=== PATIENT | female | born 1970 | race Two or more races ===

== ENCOUNTER 2016-07-29 12:17 | Emergency (ER) | payer MEDICAID ==
[~2016-07-29] VITALS: Ht 154.9 cm; Wt 68.0 kg
[2016-07-29] MEDS ORDERED: KETOROLAC TROMETH 60MG/2ML VIAL IM ONE (14:45)
[2016-07-29 14:47] VITALS: BP 139/69
== END 2016-07-29 15:10 | disposition home or self-care (01) ==
LOC: ER 12:17
DX: M23.91 Unspecified internal derangement of right knee (principal)
CPT/HCPCS: 73562; 96372; 99284; J1885

== ENCOUNTER 2017-05-13 11:48 | Emergency (ER) | payer MEDICAID ==
[~2017-05-13] VITALS: Ht 154.9 cm; Wt 77.1 kg
[2017-05-13 14:45] VITALS: BP 168/88
[2017-05-13] MEDS ORDERED: KETOROLAC TROMETH 60MG/2ML VIAL IM ONE (15:00)
== END 2017-05-13 15:12 | disposition home or self-care (01) ==
LOC: ER 11:48
DX: M77.9 Enthesopathy, unspecified (principal)
CPT/HCPCS: 93005; 96372; 99283; J1885

== ENCOUNTER 2018-06-19 11:58 | Emergency (ER) | payer MEDICAID ==
[~2018-06-19] VITALS: Ht 154.9 cm; Wt 68.0 kg
[2018-06-19] MEDS ORDERED: KETOROLAC TROMETH 60MG/2ML VIAL IM ONE (13:00)
[2018-06-19 13:44] VITALS: BP 123/81
== END 2018-06-19 13:51 | disposition home or self-care (01) ==
LOC: ER 11:58
DX: M19.012 Primary osteoarthritis, left shoulder (principal)
CPT/HCPCS: 73030; 96372; 99283; J1885